=== PATIENT | male | born 1985 | race African-American/Black ===

== ENCOUNTER 2016-09-10 03:50 | Emergency (ER) | payer OTHER ==
[~2016-09-10 03:50] MED LIST: ANTIVERT12.5 MG PO; B/P MED; BENADRYL PO; FAMOTIDINE PO; FLEXERIL10 MG PO; MEDROL PO; NAPROSYN500 MG PO; NO MEDICATIONS; PHENERGAN25 M1 PO
== END 2016-09-10 03:55 | disposition home or self-care (01) ==
LOC: CED 03:50
DX: I10 Essential (primary) hypertension (principal); F41.9 Anxiety disorder, unspecified; F17.210 Nicotine dependence, cigarettes, uncomplicated
CPT/HCPCS: 99283

== ENCOUNTER 2016-12-20 22:54 | Emergency (ER) | payer OTHER ==
[~2016-12-20] VITALS: Ht 177.8 cm; Wt 81.6 kg
== END 2016-12-21 03:15 | disposition home or self-care (01) ==
LOC: CED 22:54
DX: K64.4 Residual hemorrhoidal skin tags (principal); I10 Essential (primary) hypertension; F17.200 Nicotine dependence, unspecified, uncomplicated; Z98.890 Other specified postprocedural states
CPT/HCPCS: 99283